=== PATIENT | female | born 1985 | race Hispanic/Latino ===

== ENCOUNTER 2017-10-17 18:49 | Emergency (ER) | payer OTHER ==
[~2017-10-17] VITALS: Ht 160 cm; Wt 79.4 kg
[2017-10-17] MEDS ORDERED: SODIUM CHLORIDE 0.9% 1000ML 1,000 ML IV STA (19:24)
[2017-10-17] MEDS ORDERED: KETOROLAC TROMETHAMINE 30 MG/ML VIAL IV STA (19:24)
[2017-10-17] MEDS ORDERED: MORPHINE SULFATE 2 MG/ML SYR IV STA (20:53)
[2017-10-17] MEDS ORDERED: ONDANSETRON HCL INJ 2 MG/ML VIAL IV STA (20:53)
[2017-10-17] MEDS ORDERED: TYLENOL WITH C1 EACH PO (21:33)
[2017-10-17] MEDS ORDERED: IBUPROFEN400 MG PO (21:34)
== END 2017-10-17 21:55 | disposition home or self-care (01) ==
LOC: FSED 18:49
DX: R10.31 Right lower quadrant pain (principal); R11.0 Nausea; M54.5 Low back pain; N20.0 Calculus of kidney
CPT/HCPCS: 74176; 81003; 81025; 99284; J1885; J2270; J2405; J7030